=== PATIENT | female | born 1950 | race Caucasian/White ===

== ENCOUNTER 2018-08-07 10:30 | Emergency (ER) | payer MEDICARE, OTHER ==
[2018-08-07] MEDS ORDERED: Sodium Chloride 0.9% 2.5 ML Syringe FLUSH PRN (10:43)
[2018-08-07] MEDS ORDERED: Sodium Chloride 0.9% 10 ML Syringe FLUSH PRN (10:43)
--- NOTE | 2018-08-07 10:50 | EDM.PDOC ---
ED HPI GENERAL MEDICAL PROBLEM - General Chief Complaint: Chest Pain Stated Complaint: TINGLY ARM/HOT Time Seen by Provider: 08/07/18 10:44 Source of Information: Reports: Patient History Limitations: Reports: No Limitations - History of Present Illness INITIAL COMMENTS - FREE TEXT/NARRATIVE: HISTORY AND PHYSICAL: History of present illness: Patient is a 68-year-old female who presents to the emergency room with complaints of intermittent dizziness 1 week. She states that when ambulating she feels on balanced and as if she has to brace herself. She does have some dysuria and white vaginal discharge which she is concerned she may have a yeast infection and/or bladder infection. Also has complaints of some intermittent left arm tingling and chest pain - but states these symptoms have resolved. Denies any weakness, slurred speech or motor function loss. She denies any recent head injury, trauma or falls. Patient denies any fever, chills, headache , change in vision, syncope or near syncope. Denies any chest pain, back pain, shortness of breath or cough. Denies any abdominal pain, nausea, vomiting, diarrhea, constipation or dysuria. Has not noted any blood in urine or stool. Patient has been eating and drinking appropriately. Review of systems: As per history of present illness and below otherwise all systems reviewed and negative. Past medical history: As per history of present illness and as reviewed below otherwise noncontributory. Surgical history: As per history of present illness and as reviewed below otherwise noncontributory. Social history: See social history for further information Family history: As per history of present illness and as reviewed below otherwise noncontributory. Physical exam: General: Well-developed and well-nourished 68-year-old female. Alert and oriented. Nontoxic appearing and in no acute distress. HEENT: Atraumatic, normocephalic, pupils equal and reactive bilaterally, negative for conjunctival pallor or scleral icterus, mucous membranes moist, TMs normal bilaterally, throat clear, neck supple, nontender, trachea midline. No drooling or trismus noted. No meningeal signs. No hot potato voice noted. Lungs: Clear to auscultation, breath sounds equal bilaterally, chest nontender. Heart: S1S2, regular rate and rhythm without overt murmur Abdomen: Soft, nondistended, nontender. Negative for masses or hepatosplenomegaly. Negative for costovertebral tenderness. Pelvis: Stable nontender. Genitourinary: Deferred. Rectal: Deferred. Skin: Intact, warm, dry. No lesions or rashes noted. Extremities: Atraumatic, moves all extremities per self without difficulty or deficits, negative for cords or calf pain. Neurovascular unremarkable. Neuro: Awake, alert, oriented. Cranial nerves II through XII unremarkable. Cerebellum unremarkable. Motor and sensory unremarkable throughout. Exam nonfocal. Notes: Patient currently does not have any chest or arm pain/tingling. States the last symptoms of this was approximately 2 or 3 days ago. She is agreeable to lab work and imaging at this time. Lab work is unremarkable. Chest x-ray shows no acute findings. Negative Head CT.EKG shows a normal sinus rhythm with a rate of 75, no acute findings. Vital signs remain stable. Dizziness subsided with the meclizine. These are all reviewed with the patient. She would like to be discharged to home. We'll treat the UTI and yeast infection. Discussed the importance of following up with her primary care provider. Supportive care measures were reviewed and discussed. Voices understanding and is agreeable to plan of care. Denies any further questions or concerns at this time. Diagnostics: CBC, CMP, troponin, EKG, orthostatic vital signs, head CT Therapeutics: Saline lock Prescription: Augmentin Diflucan Impression: Vertigo Candidasis UTI Plan: 1. Take the medication as directed. Increase your oral fluids 2. May use [id number] meclizine as directed and as needed for dizziness. 3. Follow up with your primary care provider as we discussed. Return to the ED as needed and as discussed. Definitive disposition and diagnosis as appropriate pending reevaluation and review of above. - Related Data Allergies Allergy/AdvReac Type Severity Reaction Status Date / Time cabbage Allergy Hives Verified 08/07/18 10:57 celery Allergy Hives Verified 08/07/18 10:57 Brocolli Allergy Hives Uncoded 08/07/18 10:57 Home Meds: Home Meds Amoxicillin/Clavulanate K [Augmentin 875-125 MG] 1 tab PO BID 7 Days #14 tablet 08/07/18 [Rx] Fluconazole [Diflucan] 150 mg PO ONETIME #2 tab 08/07/18 [Rx] rOPINIRole [Requip] 1 tab PO DAILY 08/07/18 [History] Past Medical History Other Gastrointestinal History: Occasional indigestion use 'Rolaids or Zantac" Other Musculoskeletal History: Little arthritis in Left hip Other Neuro History: Restless Legs Psychiatric History: Reports: Anxiety - Past Surgical History Female Surgical History: Reports: Hysterectomy ED ROS GENERAL - Review of Systems Review Of Systems: ROS reveals no pertinent complaints other than HPI. ED EXAM, GENERAL - Physical Exam Exam: See Below (See dictation) Course - Vital Signs Last Recorded V/S: Last Vital Signs Temp 97.0 F 08/07/18 10:52 Pulse 74 08/07/18 12:44 Resp 18 08/07/18 12:44 BP 124/61 08/07/18 12:44 Pulse Ox 98 08/07/18 12:44 - Orders/Labs/Meds Orders: Active Orders 24 hr Category Date Time Status EKG Documentation Completion [RC] STAT Care 08/07/18 10:43 Active CULTURE URINE [RM] Stat Lab 08/07/18 11:59 Received Saline Lock Insert [OM.PC] Stat Oth 08/07/18 10:43 Ordered Labs: Laboratory Tests 08/07/18 08/07/18 08/07/18 Range/Units 11:27 11:27 11:59 WBC 5.64 (4.0-11.0) K/uL RBC 4.33 (4.30-5.90) M/uL Hgb 12.9 (12.0-16.0) g/dL Hct 39.2 (36.0-46.0) % MCV 90.5 (80.0-98.0) fL MCH 29.8 (27.0-32.0) pg MCHC 32.9 (31.0-37.0) g/dL RDW Std Deviation 43.3 (28.0-62.0) fl RDW Coeff of Cristofer 13 (11.0-15.0) % Plt Count 370 (150-400) K/uL MPV 9.60 (7.40-12.00) fL Neut % (Auto) 65.0 (48.0-80.0) % Lymph % (Auto) 24.5 (16.0-40.0) % Castro % (Auto) 7.6 (0.0-15.0) % Eos % (Auto) 1.8 (0.0-7.0) % Baso % (Auto) 1.1 (0.0-1.5) % Neut # (Auto) 3.7 (1.4-5.7) K/uL Lymph # (Auto) 1.4 (0.6-2.4) K/uL Castro # (Auto) 0.4 (0.0-0.8) K/uL Eos # (Auto) 0.1 (0.0-0.7) K/uL Baso # (Auto) 0.1 (0.0-0.1) K/uL Nucleated RBC % 0.0 /100WBC Nucleated RBCs # 0 K/uL Sodium 141 (136-145) mmol/L Potassium 4.0 (3.5-5.1) mmol/L Chloride 107 (98-107) mmol/L Carbon Dioxide 26.1 (21.0-32.0) mmol/L BUN 15 (7.0-18.0) mg/dL Creatinine 1.0 (0.6-1.0) mg/dL Est Cr Clr Drug Dosing TNP Estimated GFR (MDRD) 55.1 ml/min Glucose 97 (74-106) mg/dL Calcium 8.9 (8.5-10.1) mg/dL Total Bilirubin 0.3 (0.2-1.0) mg/dL AST 28 (15-37) IU/L ALT 36 (14-63) IU/L Alkaline Phosphatase 65 (46-116) U/L Troponin I < 0.050 (0.000-0.056) ng/mL Total Protein 7.1 (6.4-8.2) g/dL Albumin 3.6 (3.4-5.0) g/dL Globulin 3.5 (2.6-4.0) g/dL Albumin/Globulin Ratio 1.0 (0.9-1.6) Urine Color STRAW Urine Appearance CLEAR Urine pH 6.0 (5.0-8.0) Ur Specific Hutto <= 1.005 (1.001-1.035) Urine Protein NEGATIVE (NEGATIVE) mg/dL Urine Glucose (UA) NEGATIVE (NEGATIVE) mg/dL Urine Ketones NEGATIVE (NEGATIVE) mg/dL Urine Occult Blood TRACE-INTACT H (NEGATIVE) Urine Nitrite NEGATIVE (NEGATIVE) Urine Bilirubin NEGATIVE (NEGATIVE) Urine Urobilinogen 0.2 (<2.0) EU/dL Ur Leukocyte Esterase MODERATE H (NEGATIVE) Urine RBC 0-2 (0-2/HPF) Urine WBC 10-15 (0-5/HPF) Ur Epithelial Cells RARE (NONE-FEW) Urine Bacteria RARE (NEGATIVE) Meds: Medications Discontinued Medications Generic Name Dose Route Start Last Admin Trade Name Freq PRN Reason Stop Dose Admin Meclizine HCl 25 mg 08/07/18 10:57 08/07/18 11:18 Antivert PO 08/07/18 10:58 25 mg ONETIME ONE Administration Sodium Chloride 10 ml 08/07/18 10:43 Saline Flush FLUSH ASDIRECTED PRN Keep Vein Open Sodium Chloride 2.5 ml 08/07/18 10:43 Saline Flush FLUSH ASDIRECTED PRN Keep Vein Open Departure - Departure Time of Disposition: 12:33 Disposition: Home, Self-Care 01 Clinical Impression: Candidiasis, Vertigo UTI (urinary tract infection) Qualifiers: Urinary tract infection type: acute cystitis Hematuria presence: without hematuria Qualified Code(s): N30.00 - Acute cystitis without hematuria Prescriptions: Amoxicillin/Clavulanate K [Augmentin 875-125 MG] 1 tab PO BID 7 Days #14 tablet Fluconazole [Diflucan] 150 mg PO ONETIME #2 tab Instructions: Vertigo, [id number], Urinary Tract Infection, Adult, Easy-to- Read, Oral Thrush, Adult, [id number] Referrals: PCP,Unknown [Primary Care Provider] - Forms: ED Department Discharge Additional Instructions: The following information is given to patients seen in the emergency department who are being discharged to home. This information is to outline your options for follow-up care. We provide all patients seen in our emergency department with a follow-up referral. The need for follow-up, as well as the timing and circumstances, are variable depending upon the specifics of your emergency department visit. If you don't have a primary care physician on staff, we will provide you with a referral. We always advise you to contact your personal physician following an emergency department visit to inform them of the circumstance of the visit and for follow-up with them and/or the need for any referrals to a consulting specialist. The emergency department will also refer you to a specialist when appropriate. This referral assures that you have the opportunity for follow-up care with a specialist. All of these measure are taken in an effort to provide you with optimal care, which includes your follow-up. Under all circumstances we always encourage you to contact your private physician who remains a resource for coordinating your care. When calling for follow-up care, please make the office aware that this follow-up is from your recent emergency room visit. If for any reason you are refused follow-up, please contact the [facility] Emergency Department at and asked to speak to the emergency department charge nurse. [facility] [address] [place] [address] [id number] [facility] [address] [place] [id number] 1. Take the medication as directed. Increase your oral fluids 2. May use [id number] meclizine as directed and as needed for dizziness. 3. Follow up with your primary care provider as we discussed. Return to the ED as needed and as discussed. - My Orders Last 24 Hours: My Active Orders 08/07/18 10:43 EKG Documentation Completion [RC] STAT Saline Lock Insert [OM.PC] Stat 08/07/18 11:59 CULTURE URINE [RM] Stat - Assessment/Plan Last 24 Hours: My Active Orders 08/07/18 10:43 EKG Documentation Completion [RC] STAT Saline Lock Insert [OM.PC] Stat 08/07/18 11:59 CULTURE URINE [RM] Stat
[2018-08-07] MEDS ORDERED: Meclizine 25 MG Tab PO ONE (10:57)
[2018-08-07 11:59] LABS: CHLORIDE,CL 107 mmol/L (98-107); SODIUM,NA 141 mmol/L (136-145)
--- NOTE | 2018-08-07 12:10 | CR ---
INDICATION: Chest pain. TECHNIQUE: PA chest. COMPARISON: None. FINDINGS: Normal cardiac, mediastinal and hilar contours. Normal pulmonary vasculature. Old healed granulomatous disease. Lungs otherwise appear clear. No pleural fluid or pneumothorax. IMPRESSION: No signs of acute cardiopulmonary disease. Dictated by Jairo Ibarra MD @ 08/07/2018 12:09:09 PM Dictated by: Jairo Ibarra MD @ 08/07/2018 12:09:17 (Electronically Signed)
--- NOTE | 2018-08-07 12:10 | CT ---
INDICATION: Pain, shakiness, strange sensation in the left arm. TECHNIQUE: CT of the head without contrast. Coronal and sagittal reformats are included. COMPARISON: CT of the head from 01/03/2015. FINDINGS: No acute intracranial hemorrhage or extra-axial collection. No evidence of acute cortical infarction. No mass effect or midline shift. Normal cerebral volume. The ventricles are normal in size, shape and contour. There is normal vasquez and white matter differentiation. The orbital contents are normal. Paranasal sinuses are well aerated. Mastoid air cells are clear. No calvarial fractures. No lytic or sclerotic osseous lesions within the calvarium or skull base. Scalp and other imaged soft tissue structures are normal. IMPRESSION: IMPRESSION: 1. No acute intracranial abnormalities. Please note that all CT scans at this facility use dose modulation, iterative reconstruction, and/or weight-based dosing when appropriate to reduce radiation dose to as low as reasonably achievable. Dictated by Dinh Han MD @ Aug 07 2018 12:05PM Signed by Dr. Dinh Han @ Aug 07 2018 12:08PM
[2018-08-07 12:45] VITALS: BP 124/61
== END 2018-08-07 12:44 | disposition home or self-care (01) ==
LOC: MW.ED 10:30
DX: N30.00 Acute cystitis without hematuria (principal); B37.3 Candidiasis of vulva and vagina; R42 Dizziness and giddiness; Z91.018 Allergy to other foods; Z90.710 Acquired absence of both cervix and uterus
CPT/HCPCS: 36415; 70450; 71045; 80053; 81001; 84484; 85025; 87086; 87088; 87186; 93005; 99284; A9270

== ENCOUNTER 2018-12-26 08:59 | Day surgery (SDC) | payer MEDICARE, OTHER ==
[2018-12-26] MEDS ORDERED: Lactated Ringers 1,000 ML IV SCH ×2 (09:00→11:30)
--- NOTE | 2018-12-26 09:54 | PCM.PREANE ---
Preanesthetic Assessment - Anesthesia/Transfusion/Family Hx Anesthesia History: Prior Anesthesia Without Reaction Other Type of Anesthesia Reaction Comment: Awake 'shivering', denies any known problems Family History of Anesthesia Reaction: No Transfusion History: No Prior Transfusion(s) Intubation History: Unknown - Review of Systems General: No Symptoms Pulmonary: No Symptoms Cardiovascular: No Symptoms Gastrointestinal: Abdominal Pain, Constipation Neurological: No Symptoms Other: Reports: None - Physical Assessment Vital Signs: Last Vital Signs Temp 36.2 C 12/26/18 09:49 Pulse 69 12/26/18 09:49 Resp 16 12/26/18 09:49 BP 106/59 L 12/26/18 09:49 Pulse Ox 94 L 12/26/18 09:49 Height: 5 ft 4 in Weight: 69.4 kg ASA Class: 2 Mental Status: Alert & Oriented x3 Airway Class: Mallampati = 2 Dentition: Reports: Normal Dentition Thyro-Mental Finger Breadths: 3 Mouth Opening Finger Breadths: 3 ROM/Head Extension: Full Lungs: Clear to Auscultation, Normal Respiratory Effort Cardiovascular: Regular Rate, Regular Rhythm - Allergies Allergies/Adverse Reactions: Allergies Allergy/AdvReac Type Severity Reaction Status Date / Time cabbage Allergy Hives Verified 08/07/18 10:57 celery Allergy Hives Verified 12/21/18 17:02 Brocolli Allergy Hives Uncoded 12/21/18 17:02 msg Allergy Hives Uncoded 12/21/18 17:02 - Blood Blood Available: No - Anesthesia Plan Pre-Op Medication Ordered: None - Acknowledgements Anesthesia Type Planned: MAC Pt an Appropriate Candidate for the Planned Anesthesia: Yes Alternatives and Risks of Anesthesia Discussed w Pt/Guardian: Yes Pt/Guardian Understands and Agrees with Anesthesia Plan: Yes PreAnesthesia Questionnaire HEENT History: Reports: Other (See Below) Other HEENT History: wears glasses/contacts, has upper and lower dentures Gastrointestinal History: Reports: Chronic Constipation, GERD Other Gastrointestinal History: Occasional indigestion use 'Rolaids or Zantac" Musculoskeletal History: Reports: None Other Musculoskeletal History: Little arthritis in Left hip Neurological History: Other Neuro History: Restless Legs Psychiatric History: Reports: Anxiety, Depression - Infectious Disease History Infectious Disease History: Reports: Chicken Pox - Past Surgical History Female Surgical History: Reports: Hysterectomy Musculoskeletal Surgical History: Reports: Other (See Below) Other Musculoskeletal Surgeries/Procedures:: hx of restless leg syndrome - SUBSTANCE USE Smoking Status *Q: Former Smoker Tobacco Use Within Last Twelve Months: No Recreational Drug Use History: No - HOME MEDS Home Medications: Home Meds rOPINIRole [Requip] 1 mg PO BEDTIME 08/07/18 [History] Calcium Carbonate/Vitamin D3 [Calcium 250+D] 1 cap PO DAILY 12/21/18 [History] Magnesium 250 mg PO DAILY 12/21/18 [History] Melatonin 10 mg PO BEDTIME 12/21/18 [History] PARoxetine HCl [Paxil] 10 mg PO DAILY 12/21/18 [History] Polyethylene Glycol 8000 [Polyethylene Glycol] 1 capful PO DAILY 12/21/18 [ History] - CURRENT (IN HOUSE) MEDS Current Meds: Current Medications Lactated Ringer's (Ringers, Lactated) 1,000 mls @ 125 mls/hr IV ASDIRECTED [facility] Last Admin: 12/26/18 09:46 Dose: 125 mls/hr
[2018-12-26] MEDS ORDERED: Lidocaine 2% 5 ML SDV ONE (10:02)
[2018-12-26] MEDS ORDERED: fentaNYL 100 MCG/2 ML SDV ONE (10:02)
[2018-12-26] MEDS ORDERED: Propofol 200 MG/20 ML SDV ONE (10:02)
[2018-12-26] MEDS ORDERED: Midazolam 1 MG/ML 2 ML SDV ONE (10:02)
--- NOTE | 2018-12-26 11:21 | PCM.OPNOTE ---
- General Post-Op/Procedure Note Date of Surgery/Procedure: 12/26/18 Operative Procedure(s): Esophagogastroduodenoscopy with gastric and distal esophageal biopsies Pre Op Diagnosis: Progressive heartburn. Post-Op Diagnosis: Mild chronic gastritis. Mild esophagitis. Anesthesia Technique: MAC (ASA II) Primary Surgeon: Cayden South Service Station Manager: Hong Barrientos Condition: Good Free Text/Narrative:: DICTATION [id number] CPT CODE 04443
--- NOTE | 2018-12-26 11:27 | PCM.POSTAN ---
POST ANESTHESIA ASSESSMENT - MENTAL STATUS Mental Status: Alert, Oriented - VITAL SIGNS Vital Signs: Last Vital Signs Temp 36.2 C 12/26/18 09:49 Pulse 72 12/26/18 11:23 Resp 17 12/26/18 11:23 BP 100/60 12/26/18 11:23 Pulse Ox 94 L 12/26/18 11:23 - RESPIRATORY Respiratory Status: Respiratory Rate WNL, Airway Patent, O2 Saturation Stable - CARDIOVASCULAR CV Status: Pulse Rate WNL, Blood Pressure Stable - GASTROINTESTINAL GI Status: No Symptoms - PAIN Pain Score: 0 - POST OP HYDRATION Hydration Status: Adequate & Stable - OBSERVATIONS Free Text/Narrative:: no anesthesia problems
--- NOTE | 2018-12-26 11:42 | PCM48HPAN ---
Post Anesthesia Note - EVALUATION WITHIN 48HRS OF ANESTHETIC Vital Signs in Normal Range: Yes Patient Participated in Evaluation: Yes Respiratory Function Stable: Yes Airway Patent: Yes Cardiovascular Function Stable: Yes Hydration Status Stable: Yes Pain Control Satisfactory: Yes Nausea and Vomiting Control Satisfactory: Yes Mental Status Recovered: Yes Vital Signs: Last Vital Signs Temp 36.2 C 12/26/18 09:49 Pulse 72 12/26/18 11:23 Resp 17 12/26/18 11:23 BP 100/60 12/26/18 11:23 Pulse Ox 94 L 12/26/18 11:23 - COMMENTS/OBSERVATIONS Free Text/Narrative:: no anesthesia problems
--- NOTE | 2018-12-26 11:56 | OR ---
SURGEON: Cayden South M.D. DATE OF PROCEDURE: 12/26/2018 OPERATION PERFORMED: Esophagogastroduodenoscopy with gastric and distal esophageal biopsy. PRIMARY SURGEON: Cayden South MD. INTERNAL AFFAIRS INVESTIGATOR: assistant clinical nurse manager: Dr. Barrientos, PGY2. ANESTHESIA: MAC. ASA CLASSIFICATION: II. PREOPERATIVE DIAGNOSIS: Progressive heartburn with reflux. POSTOPERATIVE DIAGNOSES: 1. Mild chronic gastritis. 2. Distal esophagitis. DESCRIPTION OF PROCEDURE: The patient was taken to the endoscopy room and positioned on the endoscopy table in the supine position. Time-out was called for appropriate identification of the patient and procedure. Monitored anesthesia care was provided. The bite block was placed between the patient's teeth. The gastroscope was inserted through the bite block into the oropharynx and advanced without difficulty through the esophagus and stomach into the duodenum. Examination was now carried out in a retrograde fashion. The duodenum shows no acute inflammatory changes or ulcerations. The stomach does show mild gastritis. No acute ulcerations were no noted. Antral biopsies were obtained to look for the presence of Helicobacter pylori. The gastroscope was then retroflexed to visualize the proximal stomach. No significant hiatal hernia is noted. No ulcers or mass lesions were identified proximally. The gastroscope was then straightened and slowly withdrawn carefully visualizing the greater and lesser curvatures. Again, no acute inflammatory changes or ulcerations were noted. Once the gastroscope was withdrawn to the distal esophagus, the patient does demonstrate some mild esophagitis. Biopsies of the distal esophagus were obtained. The esophagus itself demonstrates good contractility. No mid or proximal lesions were identified. The vocal cords were visualized as the scope was withdrawn and noted to move symmetrically. The gastroscope was then removed with the patient having tolerated the procedure well. She was taken to recovery room in stable condition. SALVADOR / MICHAEL /[id number]
[2018-12-26 13:04] VITALS: BP 120/75; PULSE 65
--- NOTE | 2018-12-28 09:23 | PCM.SN ---
- Free Text/Narrative Note: Anesthesia Time Correction 12/26/18 [id number] Total time 17 minutes
== END 2018-12-26 12:00 | disposition home or self-care (01) ==
LOC: MW.SDS 08:59
PROVIDERS: ATTEND Surgery
DX: K21.0 Gastro-esophageal reflux disease with esophagitis (principal); K29.50 Unspecified chronic gastritis without bleeding; F41.9 Anxiety disorder, unspecified; F32.9 Major depressive disorder, single episode, unspecified; Z91.018 Allergy to other foods; Z79.899 Other long term (current) drug therapy; Z87.891 Personal history of nicotine dependence
CPT/HCPCS: 43239; J2001; J2250; J2704; J3010; J7120; 88305; 88312

== ENCOUNTER 2019-08-30 15:59 | Emergency (ER) | payer MEDICARE, OTHER ==
[2019-08-30] MEDS ORDERED: Diphtheria,Pertussis(Acell),Tetanus Vaccine 0.5 ML Syringe IM ONE (17:59)
[2019-08-30] MEDS ORDERED: Lidocaine 1% with EPINEPHrine 1:100,000 10 ML MDV INJECT ONE (18:02)
[2019-08-30] MEDS ORDERED: Lidocaine 1% with EPINEPHrine 1:100,000 20 ML MDV INJECT ONE (18:14)
--- NOTE | 2019-08-30 18:49 | CR ---
HISTORY: Fall. Evaluate for foreign body. TECHNIQUE: Three views of the left elbow. COMPARISON: No prior. FINDINGS: No acute fracture or malalignment. Joint space maintained. No posterior fat pad sign. No radiopaque foreign body. IMPRESSION: 1. No radiopaque foreign body. 2. No acute fracture or malalignment. Dictated by Blaise Butcher MD @ 08/30/2019 6:47:21 PM Dictated by: Blaise Butcher MD @ 08/30/2019 18:47:26 (Electronically Signed)
--- NOTE | 2019-08-30 19:43 | EDM.PDOC ---
ED HPI GENERAL MEDICAL PROBLEM - General Chief Complaint: Laceration Stated Complaint: LEFT ARM LACERATION Time Seen by Provider: 08/30/19 17:59 - History of Present Illness INITIAL COMMENTS - FREE TEXT/NARRATIVE: History of present illness: Patient presents after stumbling while picking raspberries and falling onto her left elbow she has a laceration to the left elbow no other injuries her tetanus is not up-to-date she did not hurt herself and was otherwise able to get right up the wound is on the proximal aspect of the left elbow no bony tenderness just a 2 cm irregular wound. There is a small abrasion around the wound otherwise no other complaints no other concerns Review of systems: As per history of present illness and below otherwise all systems reviewed and negative. Past medical history: As per history of present illness and as reviewed below otherwise noncontributory. Surgical history: As per history of present illness and as reviewed below otherwise noncontributory. Social history: No reported history of drug or alcohol abuse. Family history: As per history of present illness and as reviewed below otherwise noncontributory. Physical exam: HEENT: Atraumatic, normocephalic, pupils reactive, negative for conjunctival pallor or scleral icterus, mucous membranes moist, throat clear, neck supple, nontender, trachea midline. Lungs: Clear to auscultation, breath sounds equal bilaterally, chest nontender. Heart: S1S2, regular, negative for clicks, rubs, or JVD. Abdomen: Soft, nondistended, nontender. Negative for masses or hepatosplenomegaly. Negative for costovertebral tenderness. Pelvis: Stable nontender. Genitourinary: Deferred. Rectal: Deferred. Extremities: Atraumatic, negative for cords or calf pain. Neurovascular unremarkable. 2 cm laceration to the aspect of the left elbow just proximal to the olecranon process. Bleeding is controlled minor contamination present on digital exam of the wound there is a foreign body present. Neuro: Awake, alert, oriented. Cranial nerves II through XII unremarkable. Cerebellum unremarkable. Motor and sensory unremarkable throughout. Exam nonfocal. Diagnostics: [] Therapeutics: [] Impression: Elbow laceration [] Plan: Clean the wound explore the wound close the wound [] Definitive disposition and diagnosis as appropriate pending reevaluation and review of above. - Related Data Allergies Allergy/AdvReac Type Severity Reaction Status Date / Time cabbage Allergy Hives Verified 08/07/18 10:57 celery Allergy Hives Verified 12/21/18 17:02 Brocolli Allergy Hives Uncoded 12/21/18 17:02 msg Allergy Hives Uncoded 12/21/18 17:02 Home Meds: Home Meds rOPINIRole [Requip] 1 mg PO BEDTIME 08/07/18 [History] Calcium Carbonate/Vitamin D3 [Calcium 250+D] 1 cap PO DAILY 12/21/18 [History] Magnesium 250 mg PO DAILY 12/21/18 [History] Melatonin 10 mg PO BEDTIME 12/21/18 [History] PARoxetine HCl [Paxil] 10 mg PO DAILY 12/21/18 [History] Polyethylene Glycol 8000 [Polyethylene Glycol] 1 capful PO DAILY 12/21/18 [History] cephALEXin [Keflex] 500 mg PO QID #40 capsule 08/30/19 [Rx] Past Medical History HEENT History: Reports: Other (See Below) Other HEENT History: wears glasses/contacts, has upper and lower dentures Gastrointestinal History: Reports: Chronic Constipation, GERD Other Gastrointestinal History: Occasional indigestion use 'Rolaids or Zantac" Musculoskeletal History: Reports: None Other Musculoskeletal History: Little arthritis in Left hip Neurological History: Other Neuro History: Restless Legs Psychiatric History: Reports: Anxiety, Depression - Infectious Disease History Infectious Disease History: Reports: Chicken Pox - Past Surgical History Female Surgical History: Reports: Hysterectomy Musculoskeletal Surgical History: Reports: Other (See Below) Other Musculoskeletal Surgeries/Procedures:: hx of restless leg syndrome Social & Family History - Tobacco Use Smoking Status *Q: Never Smoker Second Hand Smoke Exposure: No - Caffeine Use Caffeine Use: Reports: None - Recreational Drug Use Recreational Drug Use: No ED ROS GENERAL - Review of Systems Review Of Systems: See Below ED EXAM, SKIN/RASH Exam: See Below Course - Vital Signs Text/Narrative:: 3 view left elbow read and interpreted by me no acute bony pathology is noted no dislocations there is no evidence of foreign body. There is a soft tissue defect consistent with a laceration. Read and interpreted by me Procedure: The 2 cm irregular laceration to the left elbow was anesthetized with 10 mils of 1% lidocaine with epinephrine it was explored digitally and a foreign body was identified a Nivia clamp was used to remove a 1 cm stobb of wood wound was then copiously irrigated and reexplored digitally and manually with a Nivia clamp before closure using 4 4-0 simple interrupted sutures with nylon suture tolerated the procedure well instructions for recognizing infection and wound care were given to the patient. She will be discharged home return to the ED in 10 days for suture removal return immediately for signs of infection she will be placed on Keflex due to the contaminated nature of the wound her tetanus was updated. Last Recorded V/S: Last Vital Signs Temp 36.6 C 08/30/19 16:24 Pulse 74 08/30/19 16:24 Resp 18 08/30/19 16:24 BP 106/69 08/30/19 16:24 Pulse Ox 98 08/30/19 16:24 - Orders/Labs/Meds Orders: Active Orders 24 hr Category Date Time Status Vaccines to be Administered [RC] PER UNIT ROUTINE Care 08/30/19 18:00 Active Meds: Medications Discontinued Medications Generic Name Dose Route Start Last Admin Trade Name Freq PRN Reason Stop Dose Admin Diphtheria/Tetanus/Acell Pertussis 0.5 ml 08/30/19 17:59 08/30/19 19:05 Adacel IM 08/30/19 18:00 0.5 ml .ONCE ONE Administration Lidocaine/Epinephrine 20 ml 08/30/19 18:14 08/30/19 19:05 Xylocaine 1% With Epinephrine 1:100,000 INJECT 08/30/19 18:15 20 ml ONETIME ONE Administration Departure - Departure Time of Disposition: 19:41 Disposition: Home, Self-Care 01 Condition: Good Clinical Impression: Foreign body, Removal of foreign body, Laceration - Discharge Information *PRESCRIPTION DRUG MONITORING PROGRAM REVIEWED*: Not Applicable *COPY OF PRESCRIPTION DRUG MONITORING REPORT IN PATIENT ZULMA: Not Applicable Instructions: Laceration Care, Adult, [id number] Referrals: PCP,None [Primary Care Provider] - Additional Instructions: The following information is given to patients seen in the emergency department who are being discharged to home. This information is to outline your options for follow-up care. We provide all patients seen in our emergency department with a follow-up referral. The need for follow-up, as well as the timing and circumstances, are variable depending upon the specifics of your emergency department visit. If you don't have a primary care physician on staff, we will provide you with a referral. We always advise you to contact your personal physician following an emergency department visit to inform them of the circumstance of the visit and for follow-up with them and/or the need for any referrals to a consulting specialist. The emergency department will also refer you to a specialist when appropriate. This referral assures that you have the opportunity for follow-up care with a specialist. All of these measure are taken in an effort to provide you with optimal care, which includes your follow-up. Under all circumstances we always encourage you to contact your private physician who remains a resource for coordinating your care. When calling for follow-up care, please make the office aware that this follow-up is from your recent emergency room visit. If for any reason you are refused follow-up, please contact the [facility] Emergency Department at and asked to speak to the emergency department charge nurse. [facility] [address] [place] [address] [place] [address] Return to the ED for suture removal in 10 days return immediately for signs of infection such as redness swelling pus or increased pain Sepsis Event Note (ED) - Evaluation Sepsis Screening Result: No Definite Risk - Focused Exam Vital Signs: Vital Signs Temp Pulse Resp BP Pulse Ox 08/30/19 16:24 36.6 C 74 18 106/69 98
[2019-08-31 01:35] VITALS: BP 106/55; PULSE 72
== END 2019-08-30 20:00 | disposition home or self-care (01) ==
LOC: MW.ED 15:59
DX: S51.022A Laceration with foreign body of left elbow, initial encounter (principal); F41.9 Anxiety disorder, unspecified; F32.9 Major depressive disorder, single episode, unspecified; Z23 Encounter for immunization; Z91.018 Allergy to other foods; Z79.899 Other long term (current) drug therapy; W01.0XXA Fall on same level from slipping, tripping and stumbling without subsequent striking against object, initial encounter
CPT/HCPCS: 12031; 73080-26-LT; 73080-LT; 90471; 90715; 99283-25

== ENCOUNTER 2019-09-09 08:27 | Emergency (ER) | payer MEDICARE, OTHER ==
--- NOTE | 2019-09-09 08:57 | EDM.PDOC ---
ED HPI GENERAL MEDICAL PROBLEM - General Stated Complaint: REMOVAL OF STITCHES Time Seen by Provider: 09/09/19 08:55 Source of Information: Reports: Patient History Limitations: Reports: No Limitations - History of Present Illness INITIAL COMMENTS - FREE TEXT/NARRATIVE: 69-year-old female returns for suture removal today. She was seen on 08/29 in the ER after stumbling while picking raspberries and falling onto her left elbow, with 4 stitches placed on her left elbow 2cm wound. Three-view x-ray was performed to the left elbow demonstrating no foreign body. Today she denies fever, warmth, drainage, pain with range of motion to the left elbow. However she is concerned for some skin thickening to the suture site. She is also concerned for a bump to her right anterior tib-fib after scraping a glass table 2 years ago. She is concerned the wound is nonhealing. ROS: A 10-point review of systems, other than pertinent positives and negatives as stated per HPI, is otherwise negative Past medical history: No additional pertinent history Past Surgical history: No additional pertinent history Social history: No additional pertinent history Family history: No additional pertinent history PHYSICAL EXAM General: AOx4, GCS = 15, No distress HEENT: dry mucous membrane Neck: supple, no meningismus, no Kernig or Brudzinski Cardiac: S1S2 RRR Respiratory: CTAB, no crackles or rales, no wheezing Abdomen: Soft, nontender, no rebound or guarding, nondistended, no pulsatile mass. Back: nontender Musculoskeletal: NVI distally, left elbow suture site C/D/I. 1 cm surrounding induration with no warmth or tenderness or pain with range of motion. Right anterior tib-fib scar with no surrounding erythema or warmth or induration or fluctuance. Neuro: No focal deficits, CN 2 - 12 WNL. - Related Data Allergies Allergy/AdvReac Type Severity Reaction Status Date / Time cabbage Allergy Hives Verified 08/07/18 10:57 celery Allergy Hives Verified 12/21/18 17:02 Brocolli Allergy Hives Uncoded 12/21/18 17:02 msg Allergy Hives Uncoded 12/21/18 17:02 Home Meds: Home Meds rOPINIRole [Requip] 1 mg PO BEDTIME 08/07/18 [History] Calcium Carbonate/Vitamin D3 [Calcium 250+D] 1 cap PO DAILY 12/21/18 [History] Magnesium 250 mg PO DAILY 12/21/18 [History] Melatonin 10 mg PO BEDTIME 12/21/18 [History] PARoxetine HCl [Paxil] 10 mg PO DAILY 12/21/18 [History] Polyethylene Glycol 8000 [Polyethylene Glycol] 1 capful PO DAILY 12/21/18 [History] cephALEXin [Keflex] 500 mg PO QID #40 capsule 08/30/19 [Rx] Past Medical History HEENT History: Reports: Other (See Below) Other HEENT History: wears glasses/contacts, has upper and lower dentures Gastrointestinal History: Reports: Chronic Constipation, GERD Other Gastrointestinal History: Occasional indigestion use 'Rolaids or Zantac" Musculoskeletal History: Reports: None Other Musculoskeletal History: Little arthritis in Left hip Neurological History: Other Neuro History: Restless Legs Psychiatric History: Reports: Anxiety, Depression - Infectious Disease History Infectious Disease History: Reports: Chicken Pox - Past Surgical History Female Surgical History: Reports: Hysterectomy Musculoskeletal Surgical History: Reports: Other (See Below) Other Musculoskeletal Surgeries/Procedures:: hx of restless leg syndrome Social & Family History - Caffeine Use Caffeine Use: Reports: None ED ROS GENERAL - Review of Systems Review Of Systems: Comprehensive ROS is negative, except as noted in HPI. ED EXAM, GENERAL - Physical Exam Exam: See Below (see dictation) Course - Re-Assessments/Exams Free Text/Narrative Re-Assessment/Exam: 09/09/19 09:00 Sutures removed by RN without complications. She has a normal gait on road test. I advised the patient to return to the ER for reevaluation if symptoms worsened, including fever, worsening redness, pain, or any other worrisome symptoms. I instructed the patient to follow up with their PCP within 2-3 days. MEDICAL DECISION MAKING: I reviewed the patients past medical records, lab and radiographic findings. I discussed the case with the patient. My differential diagnosis included: Nonhealing wound. I reviewed the x-ray reading to the left elbow from 08/29, there is no foreign body noted. I do not suspect cellulitis or abscess today. Departure - Departure Time of Disposition: 09:02 Disposition: Home, Self-Care 01 Condition: Good Clinical Impression: Sutured skin wound - Discharge Information *PRESCRIPTION DRUG MONITORING PROGRAM REVIEWED*: Not Applicable *COPY OF PRESCRIPTION DRUG MONITORING REPORT IN PATIENT ZULMA: Not Applicable Instructions: Sutured Wound Care Referrals: Magalys Carranza [facility] [Primary Care Provider] - 1 Week Additional Instructions: The need for follow-up, as well as the timing and circumstances, are variable depending upon the specifics of your emergency department visit. If you don't have a primary care physician on staff, we will provide you with a referral. We always advise you to contact your personal physician following an emergency department visit to inform them of the circumstance of the visit and for follow-up with them and/or the need for any referrals to a consulting specialist. The emergency department will also refer you to a specialist when appropriate. This referral assures that you have the opportunity for follow-up care with a specialist. All of these measure are taken in an effort to provide you with optimal care, which includes your follow-up. Under all circumstances we always encourage you to contact your private physician who remains a resource for coordinating your care. When calling for follow-up care, please make the office aware that this follow-up is from your recent emergency room visit. If for any reason you are refused follow-up, please contact the [facility] Emergency Department at and asked to speak to the emergency department charge nurse. If you do not have a primary care doctor, please follow up with the clinics below within 3-5 days. [facility] [address] [place] [id number] [facility] [address] [place] [id number]
[2019-09-09 09:10] VITALS: BP 107/57; PULSE 70
[2019-09-09] MEDS ORDERED: Cefepime 2 GM in Premix Bag 1 BAG IV ONE (09:12)
== END 2019-09-09 08:50 | disposition home or self-care (01) ==
LOC: MW.ED 08:27
DX: S51.012D Laceration without foreign body of left elbow, subsequent encounter (principal); F41.9 Anxiety disorder, unspecified; F32.9 Major depressive disorder, single episode, unspecified; Z79.899 Other long term (current) drug therapy; Z91.018 Allergy to other foods; W19.XXXD Unspecified fall, subsequent encounter
CPT/HCPCS: 99281

== ENCOUNTER 2022-07-11 20:42 | Emergency (ER) | payer MEDICARE, OTHER ==
[2022-07-11] MEDS ORDERED: Albuterol 8 GM Inhaler INH STA (21:44)
[2022-07-11] MEDS ORDERED: Azithromycin 250 MG Tab PO STA (21:45)
[2022-07-11] MEDS ORDERED: Amoxicillin/Clavulanate K 875-125 MG Tab PO STA (21:46)
[2022-07-11] MEDS ORDERED: Azithromycin 250 MG Tab ONE (22:07)
[2022-07-11 22:11] VITALS: BP 123/64; PULSE 67
== END 2022-07-11 22:10 | disposition home or self-care (01) ==
LOC: MW.ED 20:42
DX: J18.9 Pneumonia, unspecified organism (principal); Z91.018 Allergy to other foods; Z20.822 Contact with and (suspected) exposure to COVID-19
CPT/HCPCS: 71046; 99285; A9270; U0002

== ENCOUNTER 2023-06-26 10:50 | Emergency (ER) | payer MEDICARE, OTHER ==
[2023-06-26 11:32] VITALS: BP 146/76; PULSE 97
[2023-06-26] MEDS: Tetracaine HCl/PF 0.5% 4 ML Bottle EYELF STA (11:36)
== END 2023-06-26 12:27 | disposition home or self-care (01) ==
LOC: MW.ED 10:50
DX: S05.02XA Injury of conjunctiva and corneal abrasion without foreign body, left eye, initial encounter (principal); Z79.899 Other long term (current) drug therapy; Z91.018 Allergy to other foods; Z90.710 Acquired absence of both cervix and uterus; Z75.8 Other problems related to medical facilities and other health care; X58.XXXA Exposure to other specified factors, initial encounter
CPT/HCPCS: 99283; J3490

== ENCOUNTER 2023-11-02 16:38 | Emergency (ER) | payer MEDICARE, OTHER ==
[2023-11-02] MEDS: Lidocaine 1% 50 ML MDV INJECT ONE (18:44)
[2023-11-02] MEDS: Ciprofloxacin 500 MG Tab PO ONE (19:28)
[2023-11-02 19:35] VITALS: BP 126/62; PULSE 71
== END 2023-11-02 19:30 | disposition home or self-care (01) ==
LOC: MW.ED 16:38
DX: S00.452A Superficial foreign body of left ear, initial encounter (principal); K21.9 Gastro-esophageal reflux disease without esophagitis; Z90.710 Acquired absence of both cervix and uterus; Z79.899 Other long term (current) drug therapy; Z88.8 Allergy status to other drugs, medicaments and biological substances; Z91.018 Allergy to other foods; W45.8XXA Other foreign body or object entering through skin, initial encounter
CPT/HCPCS: 10120; 99283; A9270; J2001